=== PATIENT | female | born 1995 | race Caucasian/White ===

== ENCOUNTER 2018-08-20 22:41 | Emergency (ER) | payer OTHER ==
[~2018-08-20] VITALS: Ht 172.7 cm; Wt 73.9 kg
[2018-08-20 22:47] VITALS: Ht 172.7 cm; Wt 73.9 kg
--- NOTE | 2018-08-21 03:27 | ERD ---
ER Documentation Chief Complaint Chief Complaint painful/frequent urination x 2 weeks HPI This is a 23-year-old female who presents emergency department with complaints of frequent urination and dysuria for about 2 weeks. Stated that today she developed right lower abdominal pain, vomiting and difficulty walking due to right lower abdominal pain. Her last bowel movement was today and it was normal. LMP: 08/18/2017. A0. Denies headache, head injury, loss of consciousness, dizziness, neck pain, neck stiffness, throat pain, difficulty swallowing, difficulty breathing lying flat, shoulder pain, chest pain, back pain, constipation, diarrhea, urinary symptoms, or possibility being , loss of bowel and bladder control, trauma, injury, falls, difficulty walking due to pain, numbness or tingling s ensation, calf pain, recent travel, recent major surgery in the last 3 weeks, calf pain, recent long travel, recent exposure to any illness, recent antibiotic use in the last 3 months, fever, chills, seizures. Past medical history: Surgical history: x1. Social: Denies smoking, use of alcoholic beverages, use of illegal drugs. ROS All systems reviewed and are negative except as per history of present illness. Medications Home Meds Active Scripts Ibuprofen* (Motrin*) 800 Mg Tab, 800 MG PO Q6H PRN for PAIN AND OR ELEVATED TEMP, #30 TAB Prov:ABRAHAM PATEL F 08/21/18 Ondansetron Hcl* (Zofran*) 4 Mg Tablet, 4 MG PO Q8H PRN for NAUSEA AND/OR VOMITING, #30 TAB Prov:ABRAHAM PATEL F 08/21/18 Cephalexin* (Keflex*) 500 Mg Capsule, 500 MG PO TID for 7 Days, CAP Prov:PASILABAN,TAHMINAAR F 08/21/18 Phenazopyridine Hcl* (Pyridium*) 100 Mg Tab, 100 MG PO TID PRN for URINARY PAIN, #8 TAB Prov:PASILABANTAHMINAAR F 08/21/18 Allergies Allergies: Coded Allergies: No Known Drug Allergies (Verified Allergy, Unknown, 08/20/18) PMhx/Soc Medical and Surgical Hx: pt denies Medical Hx, pt denies Surgical Hx Hx Alcohol Use: No Hx Substance Use: No Hx Tobacco Use: No Smoking Status: Never smoker Physical Exam Vitals Physical Exam Const: No acute distress Head: Atraumatic Eyes: Normal Conjunctiva ENT: Normal External Ears, Nose and Mouth. Neck: Full range of motion. No meningismus. Resp: Clear to auscultation bilaterally Cardio: Regular rate and rhythm, no murmurs Abd: Soft, non tender, non distended. Normal bowel sounds. Negative Cantrell sign. His right lower quadrant abdominal tenderness. Difficulty walking due to pain. Skin: No petechiae or rashes. Color appears normal for ethnicity. No skin tenting. No signs of severe dehydration. Back: No midline or flank tenderness Ext: No cyanosis, or edema Neur: Awake and alert. No neurological deficit. Psych: Normal Mood and Affect Results 24 hrs Laboratory Tests Test 08/21/18 03:49 08/21/18 04:04 White Blood Count 8.3 10^3/ul Red Blood Count 4.79 10^6/ul Hemoglobin 12.1 g/dl Hematocrit 37.2 % Mean Corpuscular Volume 77.7 fl Mean Corpuscular Hemoglobin 25.3 pg Mean Corpuscular Hemoglobin Concent 32.5 g/dl Red Cell Distribution Width 13.1 % Platelet Count 314 10^3/UL Mean Platelet Volume 10.1 fl Immature Granulocytes % 0.400 % Neutrophils % 65.8 % Lymphocytes % 22.4 % Monocytes % 8.8 % Eosinophils % 2.2 % Basophils % 0.4 % Nucleated Red Blood Cells % 0.0 /100WBC Immature Granulocytes # 0.030 10^3/ul Neutrophils # 5.5 10^3/ul Lymphocytes # 1.9 10^3/ul Monocytes # 0.7 10^3/ul Eosinophils # 0.2 10^3/ul Basophils # 0.0 10^3/ul Nucleated Red Blood Cells # 0.0 10^3/ul Urine Color YELLOW Urine Clarity SLIGHTLY CLOUDY Urine pH 6.0 Urine Specific [place] 1.014 Urine Ketones NEGATIVE mg/dL Urine Nitrite NEGATIVE mg/dL Urine Bilirubin NEGATIVE mg/dL Urine Urobilinogen NEGATIVE mg/dL Urine Leukocyte Esterase 1+ Sophia/ul Urine Microscopic RBC 89 /HPF Urine Microscopic WBC 106 /HPF Urine Squamous Epithelial Cells FEW /HPF Urine Amorphous Crystals FEW /HPF Urine Bacteria FEW /HPF Urine Hemoglobin 2+ mg/dL Urine Glucose NEGATIVE mg/dL Urine Total Protein 2+ mg/dl Sodium Level 142 mmol/L Potassium Level 3.7 mmol/L Chloride Level 101 mmol/L Carbon Dioxide Level 27 mmol/L Anion Gap 14 Blood Urea Nitrogen 12 mg/dl Creatinine 0.61 mg/dl Est Glomerular Filtrat Rate mL/min > 60 mL/min Glucose Level 92 mg/dl Calcium Level 9.6 mg/dl Total Bilirubin 0.6 mg/dl Direct Bilirubin 0.00 mg/dl Indirect Bilirubin 0.6 mg/dl Aspartate Amino Transf (AST/SGOT) 20 IU/L Alanine Aminotransferase (ALT/SGPT) 15 IU/L Alkaline Phosphatase 69 IU/L Total Protein 8.5 g/dl Albumin 4.6 g/dl Globulin 3.90 g/dl Albumin/Globulin Ratio 1.17 Amylase Level 59 U/L Lipase 47 U/L POC Beta HCG, Qualitative NEGATIVE Current Medications Medications Dose Sig/Clarence Start Time Status Last (Trade) Ordered Route PRN Stop Time Admin Dose Reason Admin Sodium 1,000 ml @ Q1H ONCE 08/21/18 DC 08/21/18 Chloride 1,000 mls/hr IV 03:30 04:18 08/21/18 04:29 Morphine 4 mg ONCE STAT 08/21/18 DC 08/21/18 Sulfate IV 03:29 04:18 (morphine) 08/21/18 03:31 Ondansetron 4 mg ONCE STAT 08/21/18 DC 08/21/18 HCl (Zofran IV 03:29 04:18 Inj) 08/21/18 03:31 Sodium 100 ml @ ud STK-MED 08/21/18 DC 08/21/18 Chloride ONCE .ROUTE 06:08 06:28 08/21/18 06:09 Iohexol 150 ml STK-MED 08/21/18 DC 08/21/18 (Omnipaque ONCE .ROUTE 06:08 06:28 300mg/ ml) 08/21/18 06:09 Cephalexin 500 mg ONCE ONCE 08/21/18 DC 08/21/18 (Keflex) PO 07:30 07:19 08/21/18 07:31 Procedures/MDM Diagnostic tests: POC urine : Negative. Urinalysis: UTI. Culture urine: Sent. Blood works: Reviewed. Ultrasound of the kidneys: Unremarkable renal ultrasound. CT of the abdomen and pelvis with IV contrast:1. Mild edematous bladder wall thickening concerning for cystitis. Correlation is suggested. 2. Mild hepatomegaly versus a Daria's lobe. Treatment: Saline lock. Normal saline IV bolus. Morphine IV. Zofran IV. Re-evaluation: No active vomiting. Negative Cantrell sign. Negative Frederick sign (heel jar test). Negative psoas sign. Negative Rovsing sign. Able to jump 5 times without developing lower abdominal pain. Stated that she is comfortable going home. Differential diagnosis I have low suspicion for, cholecystitis, diverticulitis, appendicitis, pancreatitis, obstructing kidney stone, septic stone, pyelonephritis, patient, mesenteric ischemia. Final diagnosis: UTI. Cystitis. Prescription: Keflex. Motrin. Pyridium. Zofran. Follow-up with PCP in the next 24-48 hours. Come back here in the emergency department for any new symptoms or any worsening symptoms. All questions and concerns were answered. Patient and family members verbalized understanding and agreed with plan of care. Hemodynamically stable on discharge. Departure Diagnosis: Primary Impression: UTI (urinary tract infection) Additional Impressions: Cystitis Dysuria Condition: Stable Additional Instructions: Follow-up with PCP in the next 24-48 hours. Come back here in the emergency department for any new symptoms or any worsening symptoms. ABRAHAM PATEL Aug 21, 2018 03:27
[2018-08-21] MEDS ORDERED: morphine 4 MG/ML VIAL IV STA (03:29)
[2018-08-21] MEDS ORDERED: ONDANSETRON 4 MG INJ IV STA (03:29)
[2018-08-21] MEDS ORDERED: SOD CHLORIDE 0.9% 1,000 ML IV ONE (03:30)
[2018-08-21] MEDS ORDERED: IOHEXOL 300MG/ML 150 ML BTL ONE (06:08)
[2018-08-21] MEDS ORDERED: SOD CHLORIDE 0.9% 100 ML ONE (06:08)
[2018-08-21] MEDS ORDERED: IBUP800T48 PO (07:11)
[2018-08-21] MEDS ORDERED: CEPH-443 PO (07:11)
[2018-08-21] MEDS ORDERED: ONDA4TAB8 PO (07:11)
[2018-08-21] MEDS ORDERED: PHEN-537 PO (07:11)
[2018-08-21] MEDS ORDERED: CEPHALEXIN 500 MG CAP PO ONE (07:30)
[2018-08-21 07:35] VITALS: BP 118/58; PULSE 80; RESP 16
== END 2018-08-21 07:35 | disposition home or self-care (01) ==
LOC: FTE 22:41
DX: N39.0 Urinary tract infection, site not specified (principal); N30.90 Cystitis, unspecified without hematuria
CPT/HCPCS: 74177; 76775; 80053; 81001; 81025; 82150; 83690; 85025; 87086; 96361; 96374; 96375; J2270; J2405; J7030; Q9967; Z7502; Z7610